=== PATIENT | male | born 1995 | race Two or more races ===

== ENCOUNTER 2020-04-10 13:36 | Emergency (ER) | payer SELFPAY ==
[~2020-04-10] VITALS: Ht 193 cm; Wt 77.1 kg
[2020-04-10 14:26] VITALS: BP 139/82
== END 2020-04-10 14:30 ==
LOC: ER 13:36
DX: R51.9 Headache, unspecified; M54.2 Cervicalgia

== ENCOUNTER → 2021-05-25 | Emergency (ER) | payer OTHER ==
[~2021-05-25] VITALS: Ht 195.6 cm; Wt 86.2 kg
[2021-05-25 14:40] VITALS: BP 114/65
== END | disposition left against medical advice (07) ==
LOC: ER 14:35
DX: S61.512A Laceration without foreign body of left wrist, initial encounter (principal); Z53.21 Procedure and treatment not carried out due to patient leaving prior to being seen by health care provider; W25.XXXA Contact with sharp glass, initial encounter; Y93.89 Activity, other specified; Y92.89 Other specified places as the place of occurrence of the external cause; Y99.8 Other external cause status
CPT/HCPCS: 73110